=== PATIENT | male | born 1970 | race Caucasian/White ===

== ENCOUNTER → 2016-12-06 | Outpatient (CLI) | payer SELFPAY ==
[~2016-12-06] MED LIST: AMOX500C2; ATEN25TA PO; ATENOLOL; ATRV10T PO; CEPH500C PO; CLIN300C3 PO; CTLP20T PO; CYCL10TA9 PO; DIPH1TAB25 PO; GBPN300C; GFCD10B PO; GLIP2.5T15 PO; GLIP5TAB13 PO; HYDR-1231 PO; HYDR-757 PO; LEVOTHYROXINE; LISINOPRIL; LVT.1T PO; MELO-195 PO; MELO-198 PO; MTF500T PO; NAPR-243 PO; OXYC-12 PO; QUIN10TA PO; TOPI200T19; TRAZ150T42 PO; TRM50T PO; WRF5T PO
--- NOTE | 2016-12-06 16:01 | Diagnostic Imaging Report ---
PROCEDURE: CT head without contrast. TECHNIQUE: Multiple contiguous axial images were obtained through the brain without the use of intravenous contrast. INDICATION: Acute onset right hand numbness, numbness in lips, head pain and tunnel vision. Sella and suprasellar cisterns appeared unremarkable in nonenhanced head CT. There is no hydrocephalus. There is no evidence for intracranial hemorrhage. No mass or mass effect. No findings of focal or generalized cerebral edema. Sulci non-effaced, no abnormal extra-axial collection. Orbits, sinuses, and calvarium unremarkable. IMPRESSION: Normal CT head. Dictated by: Dictated on workstation # [id number]
== END ==
LOC: RAD 13:04
PROVIDERS: ATTEND Nurse Practitioner Adult Health
DX: G45.9 Transient cerebral ischemic attack, unspecified (principal); R20.2 Paresthesia of skin
CPT/HCPCS: 70450

== ENCOUNTER 2017-06-08 19:25 | Emergency (ER) | payer SELFPAY ==
[~2017-06-08] VITALS: Ht 177.8 cm; Wt 118.2 kg
[2017-06-08] MEDS ORDERED: IBUPROFEN 800 MG (MOTRIN) TAB PO STA (20:55)
[2017-06-08] MEDS ORDERED: NS IV 1000 ML 1,000 ML IV ONE (20:55)
--- NOTE | 2017-06-08 21:31 | ED Cough/URI ---
General Chief Complaint: Cough/Cold/Flu Symptoms Stated Complaint: COUGH,NAUSEA,DIZZY Nursing Triage Note: c/o cough x 4 days History of Present Illness Date Seen by Provider: Jun 08, 2017 Time Seen by Provider: 20:00 Initial Comments 46-year-old male reports 4 days of nonproductive cough, fever, myalgias. He did receive an influenza vaccine this fall. He's had poor fluid intake today. He had Tylenol at 1100 today. Timing/Duration: getting worse Severity/Quality: dry cough Prior Episodes/Possible Cause: no prior episodes Associated Symptoms: fever/chills, lightheadedness, muscle aches Allergies and Home Medications Allergies Coded Allergies: sertraline HCl (Unverified Allergy, 09/17/11) Home Medications Atenolol 25 Mg Tablet, 1 EACH PO DAILY, (Reported) Atorvastatin Calcium 10 Mg Tablet, 1 EACH PO DAILY, (Reported) Cephalexin Monohydrate 500 Mg Capsule, 1 EACH PO TID, #15 Prescribed by: GLORIA HODGE on 01/20/14 1634 Citalopram Hydrobromide 20 Mg Tablet, 40 MG PO DAILY, (Reported) Clindamycin Hcl 300 Mg Capsule, 1 EACH PO QID, #40 FOR INFECTION Prescribed by: ADRIAN TOLBERT on 11/12/11 1549 Cyclobenzaprine Hcl 10 Mg Tablet, 1 EACH PO Q8HR PRN, (Reported) Diphenoxylate/Atropine 1 Tab Tablet, 1 TAB PO TID PRN, (Reported) Glipizide 2.5 Mg Tab.sr.osm, 1 EACH PO BID, (Reported) Hydrocodone Bit/Acetaminophen 1 Tab Tablet, 1-2 TAB PO Q6H PRN for PAIN, #20 Prescribed by: GLORIA HODGE on 01/20/14 1634 Hydrocodone/Acetaminophen 1 Each Tablet, 1 EACH PO Q4H, #10 Prescribed by: GLORIA HODGE on 05/09/15 1441 Levothyroxine Sodium 100 Mcg Tablet, 1 EACH PO DAILY, (Reported) Meloxicam 15 Mg Tablet, 1 EACH PO DAILY, (Reported) Metformin Hcl 500 Mg Tablet, 1,000 MG PO DAILY, (Reported) Naproxen 500 Mg Tablet, 1 EACH PO TID PRN, #20 FOR PAIN Prescribed by: ADRIAN TOLBERT on 11/12/11 1549 Oxycodone Hcl/Acetaminophen 1 Each Tablet, 1 EACH PO Q6H PRN, #60 (Reported) Quinapril Hcl 10 Mg Tablet, 10 MG PO DAILY, (Reported) Tramadol Hcl 50 Mg Tab, 50 MG PO Q4-6HOURS PRN, #20 FOR PAIN Prescribed by: ADRIAN TOLBERT on 11/12/11 1549 Trazodone Hcl 150 Mg Tablet, 150 MG PO HS, (Reported) Warfarin Sod 5 Mg Tab, 7.5 MG PO DAILY@18, #50 (Reported) Constitutional: see HPI, chills, fever, malaise, weakness EENTM: see HPI, no symptoms reported Respiratory: see HPI, cough Gastrointestinal: see HPI, loss of appetite Musculoskeletal: see HPI, joint pain, muscle pain All Other Systems Reviewed Negative Unless Noted: Yes Past Uogdwxn-Filvkd-Ikfcaw Hx Patient Social History Alcohol Use: Denies Use Recreational Drug Use: No Smoking Status: Current Everyday Smoker Recent Foreign Travel: No Contact w/Someone Who Travel: No Recent Infectious Disease Expo: No Recent Hopitalizations: Yes Immunizations Up To Date Tetanus Booster (TDap): Unknown Date of Influenza Vaccine: Jan 19, 2015 Surgeries History of Surgeries: Yes (HERNIA, PERIRECTAL ABSCESS) Surgeries: Orthopedic Respiratory History of Respiratory Disorde: No Cardiovascular History of Cardiac Disorders: Yes Cardiac Disorders: Hypertension Neurological History of Neurological Disord: No Reproductive System Hx Reproductive Disorders: No Gastrointestinal History of Gastrointestinal Di: Yes (Irritable Bowel Syndrome) Musculoskeletal History of Musculoskeletal Dis: Yes Musculoskeletal Disorders: Arthritis Endocrine History of Endocrine Disorders: Yes Endocrine Disorders: Diabetes, Non-Insulin dep Cancer History of Cancer: No Psychosocial History of Psychiatric Problem: Yes Integumentary History of Skin or Integumenta: No Blood Transfusions History of Blood Disorders: No Reviewed Nursing Assessment Reviewed/Agree w Nursing PMH: Yes Physical Exam Vital Signs Vital Signs - First Documented 06/08/17 20:02 Temp 100.7 Pulse 112 Resp 18 B/P (MAP) 146/90 (108) Pulse Ox 94 Capillary Refill : Less Than 3 Seconds General Appearance: WD/WN, mild distress Eyes: Bilateral Eye Normal Inspection, Bilateral Eye PERRL, Bilateral Eye EOMI HEENT: PERRL/EOMI, normal ENT inspection, TMs normal, pharynx normal Neck: non-tender, full range of motion, supple, normal inspection Respiratory: chest non-tender, lungs clear, normal breath sounds Cardiovascular: normal peripheral pulses, regular rate, rhythm Gastrointestinal: normal bowel sounds, non tender, soft Neurologic/Psychiatric: no motor/sensory deficits, alert, normal mood/affect, oriented x 3 Skin: normal color, warm/dry Lymphatic: no adenopathy Progress/Results/Core Measures Suspected Sepsis Recent Fever Within 48 Hours: Yes Infection Criteria Present: None New/Unexplained Altered Menta: No Sepsis Screen: No Definite Risk Sepsis Diagnosis: SIRS Temperature:100.7 Pulse: 112 Respiratory Rate: 18 Blood Pressure 146 /90 Mean: 108 Results/Orders Lab Results Laboratory Tests Test 06/08/17 20:05 Range/Units Glucometer 204 H 70-110 MG/DL Micro Results Microbiology 06/08/17 Influenza Types A,B Antigen (COREY) - Final, Complete My Orders Orders - IVANA PELAYO Influenza A And B Antigens (06/08/17 20:44) Ibuprofen Tablet (Motrin Tablet) (06/08/17 20:55) Saline Lock/Iv-Start (06/08/17 20:55) Ns Iv 1000 Ml (Sodium Chloride 0.9%) (06/08/17 20:55) Medications Given in ED Current Medications Medications Dose Ordered Sig/Marielos Route Start Time Stop Time Status Last Admin Dose Admin Sodium Chloride 1,000 ml @ 0 mls/hr Q0M ONCE IV 06/08/17 20:55 06/08/17 20:56 DC 06/08/17 21:07 0 MLS/HR Vital Signs/I&O Vital Sign - Last 12Hours 06/08/17 06/08/17 20:02 21:50 Temp 100.7 100.1 Pulse 112 104 Resp 18 B/P (MAP) 146/90 (108) 146/90 (108) Pulse Ox 94 94 Capillary Refill : Less Than 3 Seconds Blood Pressure Mean: 108 Progress Note : Time: 20:00 Progress Note Initial evaluation completed, recommended influenza swab, normal saline 1 L IV and ibuprofen 800 mg. 2100 influenza B-positive, IV infusing, temperature 100.2. 2130 discharge planning reviewed with the patient and his . All questions answered. Return precautions discussed. Departure Impression Impression: Primary Impression: Influenza B Additional Impressions: Fever Qualified Codes: R50.81 - Fever presenting with conditions classified elsewhere Cough Disposition: HOME, SELF-CARE Condition: Stable Departure-Patient Inst. Decision time for Depature: 21:30 Referrals: [facility] (PCP/Family) Primary Care Physician Patient Instructions: Flu, Adult (DC) Add. Discharge Instructions: Increase fluid intake, one bottle water every 2 hours while awake. Alternate Tylenol 650 mg and ibuprofen 600 mg every 4 hours for fever or pain. Stay at home and limited social contacts until fever free for 24 hours. Vbdy-gnw-kuyubci cough medicine as needed. Follow-up with your primary care provider if symptoms worsen or do not improve in 2-3 days. Return to emergency department for fever greater than 101 not relieved with Tylenol or ibuprofen, difficulty breathing, new problems or concerns. All discharge instructions reviewed with patient and/or family. Voiced understanding. Work/School Note: Work Release Form Date Seen in the Emergency Department: Jun 08, 2017 Return to Work: Jun 11, 2017 Restrictions: Return-No Fever (24hrs) IVANA PELAYO Jun 08, 2017 21:31
[2017-06-08 21:50] VITALS: BP 146/90
== END 2017-06-08 21:52 | disposition home or self-care (01) ==
LOC: EDUNIT# 19:25 → ER 19:27
DX: J10.1 Influenza due to other identified influenza virus with other respiratory manifestations (principal); I10 Essential (primary) hypertension; E11.9 Type 2 diabetes mellitus without complications; F17.200 Nicotine dependence, unspecified, uncomplicated; Z88.8 Allergy status to other drugs, medicaments and biological substances; Z79.84 Long term (current) use of oral hypoglycemic drugs; Z87.19 Personal history of other diseases of the digestive system; Z79.01 Long term (current) use of anticoagulants
CPT/HCPCS: 82962; 87804; 99283

== ENCOUNTER 2022-01-31 05:58 | Emergency (ER) | payer SELFPAY ==
[~2022-01-31] VITALS: Ht 170 cm; Wt 117.0 kg
[~2022-01-31 05:58] MED LIST changes: +HYDR-4226 PO; -HYDR-757 PO
--- NOTE | 2022-01-31 06:46 | ED GU-Female ---
General Chief Complaint: - Reproductive Stated Complaint: PENIS SWELLING Nursing Triage Note: Pt presents with pain and swelling to the tip of his penis. He reports that he gets yeast infections around his foreskin and his would normally take care of this problem for him, however she has in 2019 and he's been unable to take care of it. He reports some bleeding at the tip of his penis secondary to attempting to roll his foreskin back Source: patient Exam Limitations: no limitations History of Present Illness Date Seen by Provider: Jan 31, 2022 Time Seen by Provider: 06:10 Initial Comments 51-year-old male presents to the emergency department for penile swelling. Sy mptoms started this morning though he does endorse that he has had significant itching over the last couple of weeks. He states he pulled his foreskin back to try to clean his penis and it got stuck. He has had this happen a couple times in the past. He states he does have difficulty reaching them they are to clean fairly regularly. No difficulty urinating. No dysuria or other penile symptoms. Allergies and Home Medications Allergies Coded Allergies: sertraline HCl (Unverified Allergy, 09/17/11) Patient Home Medication List Home Medication List Reviewed: Yes Atenolol (Tenormin 25 Mg) 25 Mg Tablet, 1 EACH PO DAILY, (Reported) Entered as Reported by: NEWTON GARCIA on 09/23/11 0743 Atorvastatin Calcium (Lipitor 10 Mg) 10 Mg Tablet, 1 EACH PO DAILY, (Reported) Entered as Reported by: DEEJAY KUHN on 08/19/11 1232 Cephalexin Monohydrate (Cephalexin) 500 Mg Capsule, 1 EACH PO TID Prescribed by: GLORIA HODGE on 01/20/14 1634 Citalopram Hydrobromide (Celexa) 20 Mg Tablet, 40 MG PO DAILY, (Reported) Entered as Reported by: BRANDON MINER on 02/13/09 1344 Clindamycin Hcl (Cleocin Hcl) 300 Mg Capsule, 1 EACH PO QID Prescribed by: ADRIAN TOLBERT on 11/12/11 1549 Cyclobenzaprine Hcl (Cyclobenzaprine Hcl) 10 Mg Tablet, 1 EACH PO Q8HR PRN, (R eported) Entered as Reported by: NEWTON GARCIA on 09/23/11 0743 Diphenoxylate/Atropine (Diphenoxylate/Atropine Tab) 1 Tab Tablet, 1 TAB PO TID PRN, (Reported) Entered as Reported by: BRANDON MINER on 02/13/09 1345 Glipizide (Glipizide Xl) 2.5 Mg Tab.sr.osm, 1 EACH PO BID, (Reported) Entered as Reported by: DEEJAY KUHN on 08/19/11 1232 Hydrocodone Bit/Acetaminophen (Hydrocodone-Apap 5-325 Tablet) 1 Tab Tablet, 1-2 TAB PO Q6H PRN for PAIN Prescribed by: GLORIA HODGE on 01/20/14 1634 Hydrocodone/Acetaminophen (Hydrocodone/Acetaminophen 5 MG/325 MG TAB) 1 Each Tablet, 1 EACH PO Q4H Prescribed by: GLORIA HODGE on 05/09/15 1441 Levothyroxine Sodium (Levothyroxine 100 Mcg Tab) 100 Mcg Tablet, 1 EACH PO DAILY, (Reported) Entered as Reported by: DEEJAY KUHN on 08/19/11 1232 Meloxicam (Meloxicam) 15 Mg Tablet, 1 EACH PO DAILY, (Reported) Entered as Reported by: DEEJAY KUHN on 08/19/11 1232 Metformin Hcl (Metformin 500 Mg) 500 Mg Tablet, 1,000 MG PO DAILY, (Reported) Entered as Reported by: BRANDON IMNER on 02/13/09 1352 Naproxen (Naprosyn) 500 Mg Tablet, 1 EACH PO TID PRN Prescribed by: ADRIAN TOLBERT on 11/12/11 1549 Oxycodone Hcl/Acetaminophen (Percocet 5-325 Mg Tablet) 1 Each Tablet, 1 EACH PO Q6H PRN, (Reported) Entered as Reported by: MERI BURDEN on 09/26/11 1056 Quinapril Hcl (Accupril) 10 Mg Tablet, 10 MG PO DAILY, (Reported) Entered as Reported by: DEEJAY KUHN on 08/19/11 1232 Tramadol Hcl (Ultram) 50 Mg Tab, 50 MG PO Q4-6HOURS PRN Prescribed by: ADRIAN TOLBERT on 11/12/11 1549 Trazodone Hcl (Trazodone Hcl) 150 Mg Tablet, 150 MG PO HS, (Reported) Entered as Reported by: NEWTON GARCIA on 09/23/11 0743 Warfarin Sod (Coumadin 5 Mg) 5 Mg Tab, 7.5 MG PO DAILY@18, (Reported) Entered as Reported by: MERI BURDEN on 09/26/11 1056 Review of Systems Review of Systems Constitutional: no symptoms reported EENTM: no symptoms reported Respiratory: no symptoms reported Cardiovascular: no symptoms reported Gastrointestinal: no symptoms reported Genitourinary: other (penile swelling) Musculoskeletal: no symptoms reported Skin: no symptoms reported Psychiatric/Neurological: No Symptoms Reported Endocrine: No Symptoms Reported Hematologic/Lymphatic: No Symptoms Reported Past Shhocqn-Ayukpg-Adatbp Hx Patient Social History Tobacco Use?: No Use of E-Cig and/or Vaping dev: No Substance use?: No Alcohol Use?: No Immunizations Up To Date Tetanus Booster (TDap): Unknown Past Medical History Surgeries: Yes (HERNIA, PERIRECTAL ABSCESS) Orthopedic Respiratory: No Cardiac: Yes Hypertension Neurological: No Reproductive Disorders: No Gastrointestinal: Yes (Irritable Bowel Syndrome) Musculoskeletal: Yes Arthritis Endocrine: Yes Diabetes, Non-Insulin dep Cancer: No Psychosocial: Yes Integumentary: No Blood Disorders: No Family Medical History Reviewed Nursing Family Hx No Pertinent Family Hx Physical Exam Vital Signs Vital Signs - First Documented 01/31/22 06:05 Temp 37.0 Pulse 91 Resp 18 B/P (MAP) 181/97 (125) Capillary Refill : Less Than 3 Seconds Height, Weight, BMI Height: 5'10" Weight: 260lbs. 8.0oz. [id number]; 40.00 BMI Method:Stated General Appearance: WD/WN, no apparent distress HEENT: normal ENT inspection, pharynx normal Neck: non-tender, full range of motion, supple, normal inspection Cardiovascular: regular rate, rhythm, no edema, no gallop, no JVD, no murmur Respiratory: chest non-tender, lungs clear, normal breath sounds, no respiratory distress, no accessory muscle use Gastrointestinal: normal bowel sounds, non tender, soft, no organomegaly, no pulsatile mass Genital/Rectal: other (Follow-up patient with swelling of the toribio of the glans. Foreskin is retracted. There is some white discharge at the base of the glans consistent with fungus. Glans appears well perfused.) Extremities: normal range of motion, non-tender, normal inspection, no pedal edema, no calf tenderness Neurologic/Psychiatric: alert, oriented x 3 Skin: other (Erythema of the glans penis at the area of swelling. There are some skin breakdown with some mild bleeding.) Progress/Results/Core Measures Suspected Sepsis SIRS Temperature: Pulse: 91 Respiratory Rate: 18 Blood Pressure 181 /97 Mean: 125 Results/Orders Vital Signs/I&O 01/31/22 06:05 Temp 37.0 Pulse 91 Resp 18 B/P (MAP) 181/97 (125) Capillary Refill : Less Than 3 Seconds Blood Pressure Mean: 125 Departure Impression Primary Impression: Enoch Disposition: 01 HOME, SELF-CARE Condition: Stable Departure-Patient Inst. Referrals: [facility] [place] (PCP/Family) Primary Care Physician SOPHIE PAUL MD Patient Instructions: Enoch (DC) Add. Discharge Instructions: Please clean your penis twice a day. Use the nystatin cream twice a day as prescribed. Also take the antibiotics as prescribed until they are gone. Return to the ER for severe concerns, inability to void. Follow up with Dr Paul by calling to schedule an appointment. All discharge instructions reviewed with patient and/or family. Voiced understanding. Scripts Sulfamethoxazole/Trimethoprim (Bactrim Ds Tablet) 1 Each Tablet 1 EACH PO BID for 7 Days, #14 TAB Prov: KONRAD HOLGUIN DO 01/31/22 Nystatin/Triamcinolone (Nystatin-Triamcinolone Cream) 100,000 Unit/Gram-0.1 % Cr 15 GM TP BID for 7 Days, #1 EA Prov: KONRAD HOLGUIN DO 01/31/22 KONRAD HOLGUIN DO Jan 31, 2022 06:46
[2022-01-31] MEDS ORDERED: SULF1TAB38 PO (07:24)
[2022-01-31] MEDS ORDERED: NYST15CR36 TP (07:24)
[2022-01-31 07:42] VITALS: BP 156/95
== END 2022-01-31 07:42 | disposition home or self-care (01) ==
LOC: EDUNIT# 05:58 → ER 06:00
DX: N48.1 Balanitis (principal)
CPT/HCPCS: 99283